=== PATIENT | female | born 2000 | race Caucasian/White ===

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

== ENCOUNTER 2021-04-14 17:41 | Emergency (ER) | payer OTHER, MEDICAID ==
[~2021-04-14] VITALS: Ht 165.1 cm; Wt 56.7 kg
[~2021-04-14 17:41] MED LIST changes: +CIPROFLOXIN HC2.5 M1 OPHTHALMIC; +KEFLEX500 M1 PO
[2021-04-14] MEDS ORDERED: ZYRTEC10 M4 PO (17:56)
[2021-04-14 20:16] VITALS: BP 122/68
== END 2021-04-14 20:16 | disposition home or self-care (01) ==
LOC: M.ERS 17:41
DX: S93.601A Unspecified sprain of right foot, initial encounter (principal); Z79.899 Other long term (current) drug therapy; X58.XXXA Exposure to other specified factors, initial encounter; Y93.89 Activity, other specified; Y92.89 Other specified places as the place of occurrence of the external cause; Y99.8 Other external cause status